=== PATIENT | male | born 1975 | race Hispanic/Latino ===

== ENCOUNTER 2023-03-01 08:03 | Outpatient (CLI) | payer OTHER, SELFPAY ==
--- NOTE | 2023-03-08 18:32 | WPDHOMESLEEP ---
Sleep Study - Home Unattended Date of Study: 03/01/23 Ordering Provider: Wojciech Briceño APRN Interpreting Provider: Ira Guido MD Home Sleep Study Type: Watch PAT Height: 1.73 m Weight: 74.843 kg Body Mass Index: 25.0 Neck Circumference (inches): 15 [place]: 8 Reason for Sleep Study Hypersomnnia Sleep History Fausto Long is a 47-year-old man Wakes up feeling tired in the morning. His medical comorbidities include ADHD, hypertension, anxiety and hypothyroidism. He can not stay asleep after 3 in the morning. He vapes cannabis to help get to sleep and stay asleep. He never awakens from sleep short of breath. He occasional at night with heartburn, belching or cough.??He constant snores, and constantly snores loudly enough that others complain. He occasional has trouble sleeping when he has a cold. He never wakes up gasping for breath during the night. He constantly has breathing problems at night. He occasional sweats excessively at night. He never notices his heart pounding or beating irregularly during the night. He occasionally falls asleep during the day. He rarely falls asleep involuntarily, rarely falls asleep while driving. He never experiences loss of muscle tone with strong emotion. He never feels paralyzed on waking or falling asleep. He occasionally experiences vivid dreams upon waking or falling asleep. He never feel afraid of going to sleep. He rarely has nightmares. He occasionally recalls his dreams. He constantly has thoughts racing through his mind. He occasionally feels sad or depressed. He occasionally feels anxiety. He frequently notices parts of his body jerk. He occasionally kicks during the night. He frequently feels crawling or aching feelings in his legs. He never feels leg pain at night. He frequently grinds his teeth, almost always has morning jaw pain. He frequently feels bothered by pain during the day, never awakened by pain during the night. He constantly wakes up feeling stiff in the morning, constantly wakes feeling sore or achy in the morning. constantly he awakens with pain in his neck, spine, or joints. he has memory problems and concentration difficulties. 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 Normal bedtime is Between 11:00 p.m. and 12 midnight, usually falling asleep within a few minutes. He typically gets about 4-5 hours of sleep which are continuous then he tosses and turns for another 2-3 hours of sleep per night. His wake up time is between 6:00 a.m. and 7:00 a.m.. He wakes up multiple times at night, will roll over and try to get back to sleep. His schedule is similar on weekends, may go to bed as late as 1:00 a.m. and may wake as late as 8:00 a.m... He is usually drowsy for an hour after waking. He does not generally take naps however a short nap lasting 10 or 15 minutes may be refreshing. the patient has lost 10 lb in the last year. Habits:??Tobacco: Never Caffeine: 2 cups per day. Alcohol: 2 servings per day Recreational substances: yes, he vapes cannabis at night to help with his sleep. [facility] Past Medical History Medical History (Updated 03/10/23 @ 13:46 by Ira Guido MD) ADHD Anxiety Hypertension Hypothyroidism Seasonal allergies Surgical History Surgical History (Updated 03/10/23 @ 13:47 by Ira Guido MD) Status post tonsillectomy Social History Social History Smoking status: Never smoker Alcohol intake: current Drinks per week: 7 Substance use: former Substance use type: marijuana Living arrangements: with family Occupation/Education: occupation Additional occupation/education comments: [employer] Medications Home Medications Medication Instructions Recorded Confirmed Type bupropion HCl 300 mg 24 hr tablet, 300 mg PO QAM 11/29/22 01/11/23 History extended release escitalopram o
[2023-03-10 13:56] VITALS: BMI 25.0
== END 2023-03-05 09:52 | disposition home or self-care (01) ==
PROVIDERS: PCP Family Medicine; Visit Provider Nurse Practitioner Family
DX: G47.33 Obstructive sleep apnea (adult) (pediatric) (principal); G47.10 Hypersomnia, unspecified
CPT/HCPCS: 95800